=== PATIENT | male | born 1935 | race Caucasian/White ===

== ENCOUNTER → 2016-10-07 | Outpatient (CLI) | payer MEDICARE, BC ==
[2016-10-07 09:56] LABS: CH 29.7; CHCM 32.1; HCT 42.5 % (39.0-53.0); HDW 2.76; HGB 13.7 gm/dL (13.0-17.5); MCH 29.9 pg (25.0-35.0); MCHC 32.2 g/dL (31.0-37.0); Mean Platelet Volume 7.4; RBC 4.56 m/uL (4.30-5.90); RDW 13.3 % (11.5-15.5); WBC 8.4 k/uL (3.8-10.6)
[2016-10-07 10:01] LABS: Appearance,Urine Clear (Clear); Bilirubin,Urine Negative (Negative); Glucose,Urine (UA) Negative (Negative); Ketones,Urine Negative (Negative); Leukocyte Esterase,Urine Negative (Negative); Nitrite,Urine Negative (Negative); PH, Urine 5.5 (5.0-8.0); Protein,Urine Negative (Negative); Specific Gravity,Urine 1.016 (1.001-1.035); UA Billing (MACRO vs. MICRO) CHEM; Urobilinogen,Urine <2.0 mg/dL (<2.0)
[2016-10-07 11:19] LABS: ALT 26 U/L (21-72); AST 24 U/L (17-59); Alkaline Phosphatase 69 U/L (38-126); Anion Gap 11 mmol/L; Blood Urea Nitrogen 18 mg/dL (9-20); Carbon Dioxide 25 mmol/L (22-30); Chloride 105 mmol/L (98-107); Cholesterol 149 mg/dL (<200); Glucose 113 mg/dL (74-99); HDL Cholesterol 31 mg/dL (40-60); Non-African American GFR(MDRD) >60 (>60 ml/min/1.73 sqM); Potassium 4.7 mmol/L (3.5-5.1); Sodium 141 mmol/L (137-145); Total Bilirubin 0.6 mg/dL (0.2-1.3); Total Protein 6.7 g/dL (6.3-8.2); Triglycerides 137 mg/dL (<150)
[2016-10-07 13:01] LABS: Hemoglobin A1C 6.7 % (4.2-6.1)
== END | disposition home or self-care (01) ==
LOC: LABWHC1 09:13
PROVIDERS: ATTEND Internal Medicine
DX: Z00.00 Encounter for general adult medical examination without abnormal findings (principal); E78.5 Hyperlipidemia, unspecified; R73.01 Impaired fasting glucose; J44.9 Chronic obstructive pulmonary disease, unspecified; Z12.5 Encounter for screening for malignant neoplasm of prostate
CPT/HCPCS: 84439; 80061; 80053; 84443; 83036; 85027; 81003; 82043; 36415; G0103

== ENCOUNTER → 2017-10-06 | Outpatient (CLI) | payer MEDICARE, BC ==
[2017-10-06 09:03] LABS: HCT 39.4 % (39.0-53.0); HGB 12.8 gm/dL (13.0-17.5); MCH 29.6 pg (25.0-35.0); MCHC 32.4 g/dL (31.0-37.0); MCV 91.1 fL (80.0-100.0); Mean Platelet Volume 7.4; Platelet Count 294 k/uL (150-450); RBC 4.32 m/uL (4.30-5.90); RDW 13.4 % (11.5-15.5); WBC 7.1 k/uL (3.8-10.6)
[2017-10-06 09:05] LABS: Appearance,Urine Clear (Clear); Bilirubin,Urine Negative (Negative); Blood,Urine Negative (Negative); Color,Urine Yellow; Glucose,Urine (UA) Negative (Negative); Ketones,Urine Negative (Negative); Leukocyte Esterase,Urine Negative (Negative); Nitrite,Urine Negative (Negative); PH, Urine 5.5 (5.0-8.0); Protein,Urine Negative (Negative); Urobilinogen,Urine <2.0 mg/dL (<2.0)
[2017-10-06 09:08] LABS: INR 3.3 (<1.2); Prothrombin Time 29.9 sec (9.0-12.0)
[2017-10-06 12:59] LABS: ALT 26 U/L (21-72); AST 23 U/L (17-59); Albumin 3.6 g/dL (3.5-5.0); Alkaline Phosphatase 73 U/L (38-126); Anion Gap 12 mmol/L; Blood Urea Nitrogen 23 mg/dL (9-20); Calcium 9.3 mg/dL (8.4-10.2); Carbon Dioxide 26 mmol/L (22-30); Chloride 102 mmol/L (98-107); Cholesterol 144 mg/dL (<200); Glucose 108 mg/dL (74-99); HDL Cholesterol 28 mg/dL (40-60); LDL Cholesterol,Calculated 89 mg/dL (0-99); Potassium 4.5 mmol/L (3.5-5.1); Sodium 140 mmol/L (137-145); Total Bilirubin 0.4 mg/dL (0.2-1.3); Total Protein 6.7 g/dL (6.3-8.2); Triglycerides 135 mg/dL (<150)
[2017-10-06 13:23] LABS: PSA Annual Screen 1.14 ng/mL (0.00-4.00)
== END | disposition home or self-care (01) ==
LOC: LABWHC1 08:31
PROVIDERS: ATTEND Internal Medicine
DX: Z00.00 Encounter for general adult medical examination without abnormal findings (principal); E78.5 Hyperlipidemia, unspecified; J44.9 Chronic obstructive pulmonary disease, unspecified; I25.10 Atherosclerotic heart disease of native coronary artery without angina pectoris; Z79.01 Long term (current) use of anticoagulants; Z12.5 Encounter for screening for malignant neoplasm of prostate
CPT/HCPCS: 80061; 80053; 85027; 85610; 81003; 36415; G0103

== ENCOUNTER → 2017-11-05 | Outpatient (CLI) | payer MEDICARE, BC ==
[2017-11-05 20:20] LABS: Hemoglobin A1C 6.4 % (4.0-6.0)
== END | disposition home or self-care (01) ==
LOC: LABWHC1 14:16
PROVIDERS: ATTEND Internal Medicine
DX: E11.9 Type 2 diabetes mellitus without complications (principal)
CPT/HCPCS: 36415; 82947; 83036

== ENCOUNTER → 2017-11-16 | Outpatient (CLI) | payer MEDICARE, BC ==
--- NOTE | 2017-11-16 15:51 | CT ---
EXAMINATION TYPE: CT brain wo con DATE OF EXAM: 11/16/2017 COMPARISON: NONE HISTORY: 82-year-old male unspecified subjective visual disturbances TECHNIQUE: Examination was done in axial plane without intravenous contrast. Coronal and sagittal r econstructions performed. CT DLP: 1076 mGycm Automated exposure control for dose reduction was used. FINDINGS: There is no evidence of acute intracranial hemorrhage, acute ischemic changes, mass, mass-effect, or extra-axial fluid collection. There is no effacement of cerebral sulci or basal subarachnoid cister ns. There is no hydrocephalus. There is no midline shift. Hoang-white matter distinction is preserv ed. Mild generalized supratentorial volume loss. Mild patchy periventricular white matter hypodensities Moderate mucosal thickening visualized maxillary sinuses as well as in the ethmoid air cells. Mastoid air cells well pneumatized. The patient's left lens appears thinner, query prior cataract surgery. IMPRESSION: 1. No acute intracranial abnormality seen. Mild age-related cerebral atrophy. 2. The patient's left lens appears thinner than the right. Query prior cataract surgery. Ophthalmolog ic assessment as indicated.
== END | disposition home or self-care (01) ==
LOC: RADCTMAIN 14:41
PROVIDERS: ATTEND Internal Medicine
DX: G31.9 Degenerative disease of nervous system, unspecified (principal)
CPT/HCPCS: 36415; 70450; 85652

== ENCOUNTER 2022-12-30 09:24 | Observation (INO) | payer MEDICARE, BC ==
[2022-12-30] MEDS ORDERED: NITROGLYCERIN OINT 1 INCH/GM PACKET TOPICAL STA (09:56)
[2022-12-30] MEDS ORDERED: ASPIRIN 81 MG PO STA (09:56)
--- NOTE | 2022-12-30 10:13 | ED ---
General Adult HPI - General Chief complaint: Chest Pain Stated complaint: chest pain Time Seen by Provider: 12/30/22 09:30 Source: patient, RN notes reviewed, old records reviewed Mode of arrival: ambulatory Limitations: no limitations - History of Present Illness Initial comments: This is an 87-year-old male with a past medical history significant for an AK 25 years ago. Patient also has history of atrial fibrillation. Patient comes in today because over the last 5 days been having intermittent chest pain lasting about a minute. Patient states it's a squeezing sensation typical of his angina in the past. Patient states there's been no associated shortness of breath or difficulty breathing. Patient states there is no radiation of the pain he denies any diaphoretic episodes or nausea. Patient denies any abdominal pain. There is been no lightheadedness dizziness or near syncopal episode. Patient denies any swelling to legs or calf tenderness. Patient currently has no chest pain - Related Data Home Medications Medication Instructions Recorded Confirmed Aspirin 81 mg PO HS 01/11/14 12/30/22 Atorvastatin [Lipitor] 20 mg PO SUTUTHSA@209901/11/14 12/30/22 Warfarin [Coumadin] 5 mg PO SUMOTUWETHSA@209901/11/14 12/30/22 ALPRAZolam [Xanax] 0.5 mg PO DAILY PRN 12/30/22 12/30/22 Fluticasone/Umeclidin/Vilanter 1 puff INHALATION RT-DAILY 12/30/22 12/30/22 [Trelegy Ellipta 100-62.5-25] Furosemide [Lasix] 40 mg PO DAILY 12/30/22 12/30/22 Vit C/E/Zn/Coppr/Lutein/Zeaxan 1 cap PO BID 12/30/22 12/30/22 [Preservision Areds 2 Softgel] Warfarin [Coumadin] 2.5 mg PO FR@209912/30/22 12/30/22 Previous Rx's Medication Instructions Recorded Isosorbide Mononitrate ER [Imdur] 15 mg PO DAILY #30 tab 12/31/22 Levothyroxine Sodium [Synthroid] 25 mcg PO DAILY@0630 #30 tab 12/31/22 Pantoprazole [Protonix] 40 mg PO AC-BRKFST #30 tab 12/31/22 atenoloL [Tenormin] 25 mg PO DAILY #0 12/31/22 Allergies Allergy/AdvReac Type Severity Reaction Status Date / Time No Known Allergies Allergy Verified 12/30/22 10:45 Review of Systems ROS Statement: Those systems with pertinent positive or pertinent negative responses have been documented in the HPI. ROS Other: All systems not noted in ROS Statement are negative. Past Medical History Past Medical History: COPD, Diabetes Mellitus, Hyperlipidemia, Myocardial Infarction (AK) History of Any Multi-Drug Resistant Organisms: None Reported Past Surgical History: Heart Catheterization With Stent, Hernia Repair, Tonsillectomy Past Psychological History: No Psychological Hx Reported Smoking Status: Never smoker Past Alcohol Use History: Occasional Past Drug Use History: None Reported General Exam - General Exam Comments Initial Comments: GENERAL: Patient is well-developed and well-nourished. Patient is nontoxic and well- hydrated and is in no acute distress. ENT: Neck is soft and supple. No significant lymphadenopathy is noted. Oropharynx is clear. Moist mucous membranes. Neck has full range of motion without eliciting any pain. EYES: The sclera were anicteric and conjunctiva were pink and moist. Extraocular movements were intact and pupils were equal round and reactive to light. Eyelids were unremarkable. PULMONARY: Unlabored respirations. Good breath sounds bilaterally. No audible rales rhonchi or wheezing was noted. CARDIOVASCULAR: Patient is bradycardic and has an irregularly irregular heartbeat. ABDOMEN: Soft and nontender with normal bowel sounds. SKIN: Skin is clear with no lesions or rashes and otherwise unremarkable. NEUROLOGIC: Patient is alert and oriented x3. Cranial nerves II through XII are grossly intact. Motor and sensory are also intact. Normal speech, volume and content. Symmetrical smile. MUSCULOSKELETAL: Normal extremities with adequate strength and full range of motion. No lower extremity swelling or edema. No calf tenderness. LYMPHATICS: No significant lymphadenopathy is noted PSYCHIATRIC: Normal psychiatric evaluation. Limitations: no limitations Course Vital Signs 12/30/22 12/30/22 09:29 12:57 Temperature 98.3 F 97.6 F Pulse Rate 55 L 53 L Respiratory 18 16 Rate Blood Pressure 130/58 135/77 O2 Sat by Pulse 99 99 Oximetry Medical Decision Making - Medical Decision Making EKG was interpreted by myself shows atrial fibrillation at a rate of 49 bpm QRS is 190 QT interval 490 QTC is 420. Patient's EKG shows no ST segment elevation or depression. Was pt. sent in by a medical professional or institution (, SALLIE, SOUND TRUCK OPERATOR, urgent care, hospital, or [facility]...) When possible be specific @ -Patient was sent in by his lead quality control technician Did you speak to anyone other than the patient for history (EMS, parent, family, police, friend...)? What history was obtained from this source @ -[No] Did you review nursing and triage notes (agree or disagree)? Why? @ -[I reviewed and agree with nursing and triage notes] Were old charts reviewed (outside hosp., previous admission, EMS record, old EKG, old radiological studies, urgent care reports/EKG's, [facility] records)? Report findings @ -Reviewed previous labs and old charts this patient Differential Diagnosis (chest pain, altered mental status, abdominal pain women, abdominal pain men, vaginal bleeding, weakness, fever, dyspnea, syncope, headache, dizziness, GI bleed, back pain, seizure, CVA, palpatations, mental health, musculoskeletal)? @ -Differential Chest Pain: Stable Angina, Unstable Angina, STEMI, NSTEMI Aortic Dissection, Pneumothorax, Musculoskeletal, Esophageal Spasm GERD, Cholecystitis, Pancreatitis, Zoster, this is not meant to be an all-inclusive list. EKG interpreted by me (3pts min.). @ -[As above] X-rays interpreted by me (1pt min.). @ -Chest x-ray shows no acute abnormality CT interpreted by me (1pt min.). @ -[None done] U/S interpreted by me (1pt. min.). @ -[None done] What testing was considered but not performed or refused? (CT, X-rays, U/S, labs)? Why? @ -[None] What meds were considered but not given or refused? Why? @ -[None] Did you discuss the management of the patient with other professionals (professionals i.e. SALLIE Bhandari, SOUND TRUCK OPERATOR, lab, RT, psych nurse, director social service, salt operator, teacher, correctional officer captain, case monitor)? Give summary @ -I spoke with Dr. Gutierrez and [facility] Was smoking cessation discussed for >3mins.? @ -[No] Was critical care preformed (if so, how long)? @ -[No] Were there social determinants of health that impacted care today? How? (Homelessness, low income, unemployed, alcoholism, drug addiction, transportation, low edu. Level, literacy, decrease access to med. care, residential, rehab)? @ -[No] Was there de-escalation of care discussed even if they declined (Discuss DNR or withdrawal of care, Hospice)? DNR status @ -[No] What co-morbidities impacted this encounter? (DM, HTN, Smoking, COPD, CAD, Cancer, CVA, ARF, Chemo, Hep., AIDS, mental health diagnosis, sleep apnea, morbid obesity)? @ -[None] Was patient admitted / discharged? Hospital course, mention meds given and route, prescriptions, significant lab abnormalities, going to OR and other pertinent info. @ -Patient had cardiac lab work done which was negative. Patient had chest x- ray done which is negative. I spoke with both the lead quality control technician and the admitting physician and admitted the patient Undiagnosed new problem with uncertain prognosis? @ -[No] Drug Therapy requiring intensive monitoring for toxicity (Heparin, Nitro, Insulin, Cardizem)? @ -[No] Were any procedures done? @ -[No] Diagnosis/symptom? @ -Chest pain Acute, or Chronic, or Acute on Chronic? @ -Acute Uncomplicated (without systemic symptoms) or Complicated (systemic symptoms)? @ -Complicated Side effects of treatment? @ -[No] Exacerbation, Progression, or Severe Exacerbation? @ -[No] Poses a threat to life or bodily function? How? (Chest pain, USA, AK, pneumonia, PE, COPD, DKA, ARF, appy, cholecystitis, CVA, Diverticulitis, Homicidal, Suicidal, threat to staff... and all critical care pts) @ -This could lead to an AK which could lead to poor perfusion and end organ dysfunction - Lab Data Result diagrams: 12/30/22 10:06 12/30/22 10:06 Lab Results 12/30/22 12/30/22 12/30/22 Range/Units 10:06 10:06 10:06 WBC 8.3 (3.8-10.6) k/uL RBC 4.33 (4.30-5.90) m/uL Hgb 12.9 L (13.0-17.5) gm/dL Hct 39.9 (39.0-53.0) % MCV 92.1 (80.0-100.0) fL MCH 29.7 (25.0-35.0) pg MCHC 32.2 (31.0-37.0) g/dL RDW 13.3 (11.5-15.5) % Plt Count 257 (150-450) k/uL MPV 8.0 Neutrophils % 63 % Lymphocytes % 23 % Monocytes % 7 % Eosinophils % 5 % Basophils % 1 % Neutrophils # 5.2 (1.3-7.7) k/uL Lymphocytes # 1.9 (1.0-4.8) k/uL Monocytes # 0.6 (0-1.0) k/uL Eosinophils # 0.4 (0-0.7) k/uL Basophils # 0.0 (0-0.2) k/uL PT 24.5 H (9.0-12.0) sec INR 2.5 H (<1.2) APTT 35.6 H (22.0-30.0) sec Sodium 138 (137-145) mmol/L Potassium 4.1 (3.5-5.1) mmol/L Chloride 101 (98-107) mmol/L Carbon Dioxide 29 (22-30) mmol/L Anion Gap 8 mmol/L BUN 29 H (9-20) mg/dL Creatinine 0.77 (0.66-1.25) mg/dL Est GFR (CKD-EPI)AfAm >90 (>60 ml/min/1.73 sqM) Est GFR (CKD-EPI)NonAf 82 (>60 ml/min/1.73 sqM) Glucose 137 H (74-99) mg/dL Calcium 9.1 (8.4-10.2) mg/dL Magnesium 2.1 (1.6-2.3) mg/dL Total Bilirubin 0.5 (0.2-1.3) mg/dL AST 24 (17-59) U/L ALT 17 (4-49) U/L Alkaline Phosphatase 93 (38-126) U/L Troponin I (0.000-0.034) ng/mL Total Protein 7.1 (6.3-8.2) g/dL Albumin 3.9 (3.5-5.0) g/dL 12/30/22 Range/Units 10:06 WBC (3.8-10.6) k/uL RBC (4.30-5.90) m/uL Hgb (13.0-17.5) gm/dL Hct (39.0-53.0) % MCV (80.0-100.0) fL MCH (25.0-35.0) pg MCHC (31.0-37.0) g/dL RDW (11.5-15.5) % Plt Count (150-450) k/uL MPV Neutrophils % % Lymphocytes % % Monocytes % % Eosinophils % % Basophils % % Neutrophils # (1.3-7.7) k/uL Lymphocytes # (1.0-4.8) k/uL Monocytes # (0-1.0) k/uL Eosinophils # (0-0.7) k/uL Basophils # (0-0.2) k/uL PT (9.0-12.0) sec INR (<1.2) APTT (22.0-30.0) sec Sodium (137-145) mmol/L Potassium (3.5-5.1) mmol/L Chloride (98-107) mmol/L Carbon Dioxide (22-30) mmol/L Anion Gap mmol/L BUN (9-20) mg/dL Creatinine (0.66-1.25) mg/dL Est GFR (CKD-EPI)AfAm (>60 ml/min/1.73 sqM) Est GFR (CKD-EPI)NonAf (>60 ml/min/1.73 sqM) Glucose (74-99) mg/dL Calcium (8.4-10.2) mg/dL Magnesium (1.6-2.3) mg/dL Total Bilirubin (0.2-1.3) mg/dL AST (17-59) U/L ALT (4-49) U/L Alkaline Phosphatase (38-126) U/L Troponin I <0.012 (0.000-0.034) ng/mL Total Protein (6.3-8.2) g/dL Albumin (3.5-5.0) g/dL Disposition Clinical Impression: Chest pain Disposition: ADMITTED IP TO THIS HOSP
[2022-12-30 10:18] LABS: Basophils % (A) 1 %; Eosinophils # (A) 0.4 k/uL (0-0.7); Eosinophils % (A) 5 %; HCT 39.9 % (39.0-53.0); HGB 12.9 gm/dL (13.0-17.5); Lymphocytes # (A) 1.9 k/uL (1.0-4.8); Lymphocytes % (A) 23 %; MCH 29.7 pg (25.0-35.0); MCHC 32.2 g/dL (31.0-37.0); MCV 92.1 fL (80.0-100.0); Monocytes # (A) 0.6 k/uL (0-1.0); Monocytes % (A) 7 %; Neutrophils # (A) 5.2 k/uL (1.3-7.7); Neutrophils % (A) 63 %; Platelet Count 257 k/uL (150-450); RBC 4.33 m/uL (4.30-5.90); RDW 13.3 % (11.5-15.5); WBC 8.3 k/uL (3.8-10.6)
--- NOTE | 2022-12-30 10:18 | XR ---
EXAMINATION TYPE: XR chest 2V DATE OF EXAM: 12/30/2022 10:13 AM COMPARISON: Chest radiographs from 01/13/2016 TECHNIQUE: XR chest 2V Frontal and lateral views of the chest. CLINICAL INDICATION:Male, 87 years old with history of Chest Pain; FINDINGS: Lungs/Pleura: There is flattening of the diaphragm with increased lucency of the lungs. No evidence o f pneumothorax, pleural effusion or focal consolidation. Right basilar scarring. Pulmonary vascularity: Unremarkable. Heart/mediastinum: Cardiomediastinal silhouette is unremarkable. Musculoskeletal: No acute osseous pathology. IMPRESSION: Chronic changes without evidence for acute process.
[2022-12-30 10:28] LABS: ALT 17 U/L (4-49); AST 24 U/L (17-59); African American GFR (CKD) >90 (>60 ml/min/1.73 sqM); Albumin 3.9 g/dL (3.5-5.0); Alkaline Phosphatase 93 U/L (38-126); Anion Gap 8 mmol/L; Blood Urea Nitrogen 29 mg/dL (9-20); Calcium 9.1 mg/dL (8.4-10.2); Carbon Dioxide 29 mmol/L (22-30); Chloride 101 mmol/L (98-107); Glucose 137 mg/dL (74-99); INR 2.5 (<1.2); Magnesium 2.1 mg/dL (1.6-2.3); Non-African American GFR(CKD) 82 (>60 ml/min/1.73 sqM); Partial Thromboplastin Time 35.6 sec (22.0-30.0); Potassium 4.1 mmol/L (3.5-5.1); Prothrombin Time 24.5 sec (9.0-12.0); Sodium 138 mmol/L (137-145); Total Bilirubin 0.5 mg/dL (0.2-1.3); Total Protein 7.1 g/dL (6.3-8.2)
[2022-12-30] MEDS ORDERED: NITROGLYCERIN SL TABS 0.4 MG TAB SUBLINGUAL PRN (11:01)
[2022-12-30] MEDS: NITROGLYCERIN OINT 1 INCH/GM PACKET TOPICAL SCH ×3 (12:03→21:09)
[2022-12-30] MEDS ORDERED: ALPRAZolam 0.5 MG TAB PO PRN (14:36)
[2022-12-30] MEDS ORDERED: WARFARIN 5 MG TAB PO SCH (21:00)
[2022-12-30] MEDS ORDERED: ASPIRIN 81 MG PO SCH (21:00)
[2022-12-30] MEDS: VIT A,C & E-LUTEIN-MINERALS 1 EACH TAB PO SCH (21:03)
[2022-12-30] MEDS: atenoloL 25 MG TAB PO SCH (21:03)
[2022-12-31] MEDS: NITROGLYCERIN OINT 1 INCH/GM PACKET TOPICAL SCH ×2 (05:53→12:53)
[2022-12-31 06:36] LABS: INR 2.5 (<1.2); Prothrombin Time 24.6 sec (9.0-12.0)
[2022-12-31] MEDS ORDERED: TRELEGY ELLIPTA PO SCH (08:00)
[2022-12-31] MEDS ORDERED: SYMBICORT 80-4.5 MCG INHALER INHALATION SCH (08:00)
[2022-12-31] MEDS ORDERED: IPRATROPIUM 0.5 MG/2.5 ML NEBU INHALATION SCH (08:00)
[2022-12-31 08:19] VITALS: PULSE 57; RESP 18; TEMP 97.8
[2022-12-31] MEDS: VIT A,C & E-LUTEIN-MINERALS 1 EACH TAB PO SCH (08:47)
[2022-12-31] MEDS ORDERED: atenoloL 25 MG TAB PO SCH (09:00)
[2022-12-31] MEDS ORDERED: FUROSEMIDE 40 MG TAB PO SCH (09:00)
[2022-12-31] MEDS ORDERED: ASPIRIN 325 MG TAB PO SCH (09:00)
[2022-12-31 09:08] LABS: Chol/HDL Ratio 3.43 Ratio; LDL Cholesterol,Calculated 59.9 mg/dL (0.0-131.0); VLDL Calculation 13.12 mg/dL (5.00-40.00)
[2022-12-31] MEDS: atenoloL 25 MG TAB PO SCH (09:26)
[2022-12-31] MEDS ORDERED: ISOSORBIDE MONONITRATE ER 15 MG TAB PO SCH (09:30)
[2022-12-31 09:36] VITALS: BP 121/64
[2022-12-31 10:00] LABS: Glucose,Whole Blood 108 mg/dL (70-110)
--- NOTE | 2022-12-31 11:51 | P.HPIM ---
History of Present Illness H&P Date: 12/30/22 HISTORY OF PRESENT ILLNESS This is an 87-year-old male patient with past medical history of persistent atrial fibrillation, coronary artery disease with history of TX 25 years ago with stent in the mid RCA, hypertension, chronic diastolic heart failure, COPD, macular degeneration, diabetes mellitus type 2, hyperlipidemia, vitamin D deficiency, spondylosis of the lumbar spine. Patient reports chest pain that was intermittent for the past 4-5 days. It reminded him of a heart attack he had about 25 years ago but not as severe. It does not seem to be related to activity and actually when he walks fast the pain goes away. Patient presented with the above complaints and was sent into [facility] emergency center for further evaluation. He denies having any shortness of breath, no lightheadedness or dizziness, no cough or sputum production. Regarding hypothyroidism. Patient was instructed to start levothyroxine several months ago and 50 mg but he states he was unable to tolerate it. REVIEW OF SYSTEMS Constitutional: No fever, no chills, no night sweats. No weight change. No weakness, fatigue or lethargy. No daytime sleepiness. EENT: No headache. No blurred vision or double vision, no loss of vision. No loss of Hearing, no ringing in the ears, no dizziness. No nasal drainage or congestion. No epistaxis. No sore throat. Lungs: No shortness of breath, cough, no sputum production. No wheezing. Cardiovascular: Intermittent chest pain, no lower extremity edema. No palpitations. No paroxysmal nocturnal dyspnea. No orthopnea. No lightheadedness or dizziness. No syncopal episodes. Abdominal: No abdominal pain. No nausea, vomiting. No diarrhea. No constipation. No bloody or tarry stools. No loss of appetite. Genitourinary: No dysuria, increased frequency, urgency. No urinary retention. Musculoskeletal: No myalgias. No muscle weakness, no gait dysfunction, no frequent falls. No back pain. No neck pain. Integumentary: No wounds, no lesions. No rash or pruritus. No unusual bruising. No change in hair or nails. Neurologic: No aphasia. No facial droop. No change in mentation. No head injury. No headache. No paralysis. No paresthesia. Psychiatric: No depression. No anxiety. No mood swings. Endocrine: No abnormal blood sugars. No weight change. No excessive sweating or thirst. No cold intolerance. MEDICAL HISTORY Persistent atrial fibrillation Coronary artery disease with history of TX 25 years ago Hypertension Chronic diastolic heart failure COPD Macular degeneration Diabetes mellitus type 2 Hyperlipidemia Vitamin D deficiency Spondylosis of the lumbar spine SURGICAL HISTORY PCI of the RCA in 1996 Tonsillectomy and adenoidectomy Left groin hernia repair Right knee replacement Left eye cataract SOCIAL HISTORY Patient has history of tobacco use and quit greater than 20 years ago. No marijuana use. He drinks alcohol occasionally.. FAMILY HISTORY Mother age 79 from a stroke. Father is and unknown history. Patient has one sister alive with history of breast cancer and diabetes. Patient has 2 daughters with no major medical problems. PHYSICAL EXAMINATION Gen: This is an 87-year-old male. He is resting on the edge of the bed and appears to be in no acute distress. HEENT: Head is atraumatic, normocephalic. Pupils equal, round. Sclerae is anicteric. NECK: Supple. No JVD. No lymphadenopathy. No thyromegaly. LUNGS: Clear to auscultation. No wheezes or rhonchi. No intercostal r etractions. HEART: Irregular rate and rhythm. 2/6 systolic ejection murmur at the left sternal border murmur. ABDOMEN: Soft. Bowel sounds are present. No masses. No tenderness. EXTREMITIES: No pedal edema. No calf tenderness. NEUROLOGICAL: Patient is awake, alert and oriented x3. Cranial nerves 2 through 12 are grossly intact. ASSESSMENT AND PLAN 1. Chest pain. Cardiology consult. Continue patient on aspirin 81 mg daily, atenolol 25 mg twice daily, Lipitor 20 mg Wednesday. 2. History of coronary artery disease with previous stent in the RCA. 3. Persistent atrial fibrillation. Continue Coumadin, pharmacy dosing. 4. Hypertension. 5. Macular degeneration. 6. Hyperlipidemia. 7. Diabetes mellitus type 2 diet controlled. 8. Hypothyroidism. Patient stopped taking his levothyroxine. 9. GI prophylaxis. Protonix. 10. DVT prophylaxis. Coumadin. Patient placed as observation status. DISCHARGE PLAN Home. Impression and plan of care have been directed as dictated by the signing physician. Greta Rodriguez nurse practitioner acting as scribe for signing physician. Past Medical History Past Medical History: COPD, Diabetes Mellitus, Hyperlipidemia, Myocardial Infarction (TX) Last Myocardial Infarction Date:: 1997 History of Any Multi-Drug Resistant Organisms: None Reported Past Surgical History: Heart Catheterization With Stent, Hernia Repair, Tonsillectomy Date of Last Stent Placement:: 1997 Past Psychological History: No Psychological Hx Reported Smoking Status: Never smoker Past Alcohol Use History: Occasional Past Drug Use History: None Reported Medications and Allergies Home Medications Medication Instructions Recorded Confirmed Type Aspirin 81 mg PO HS 01/11/14 12/30/22 History Atorvastatin [Lipitor] 20 mg PO SUTUTHSA@209901/11/14 12/30/22 History Warfarin [Coumadin] 5 mg PO SUMOTUWETHSA@209901/11/14 12/30/22 History ALPRAZolam [Xanax] 0.5 mg PO DAILY PRN 12/30/22 12/30/22 History Fluticasone/Umeclidin/Vilanter 1 puff INHALATION RT-DAILY 12/30/22 12/30/22 History [Trelegy Ellipta 100-62.5-25] Furosemide [Lasix] 40 mg PO DAILY 12/30/22 12/30/22 History Vit C/E/Zn/Coppr/Lutein/Zeaxan 1 cap PO BID 12/30/22 12/30/22 History [Preservision Areds 2 Softgel] Warfarin [Coumadin] 2.5 mg PO FR@209912/30/22 12/30/22 History Isosorbide Mononitrate ER [Imdur] 15 mg PO DAILY #30 tab 12/31/22 Rx Levothyroxine Sodium [Synthroid] 25 mcg PO DAILY@0630 #30 tab 12/31/22 Rx Pantoprazole [Protonix] 40 mg PO AC-BRKFST #30 tab 12/31/22 Rx atenoloL [Tenormin] 25 mg PO DAILY #0 12/31/22 12/30/22 Rx Allergies Allergy/AdvReac Type Severity Reaction Status Date / Time No Known Allergies Allergy Verified 12/30/22 10:45 Physical Exam Vitals: Vital Signs Temp Pulse Pulse Resp BP BP Pulse Ox 12/30/22 14:11 97.6 F 59 L 16 161/81 96 12/30/22 12:57 97.6 F 53 L 16 135/77 99 12/30/22 09:29 98.3 F 55 L 18 130/58 99 Intake and Output 12/30/22 12/30/22 12/30/22 06:59 14:59 22:59 Other: # Voids 0 Weight 90.718 kg Results CBC & Chem 7: 12/30/22 10:06 12/30/22 10:06 Labs: Abnormal Lab Results - Last 24 Hours (Table) 12/30/22 12/30/22 12/30/22 Range/Units 10:06 10:06 10:06 Hgb 12.9 L (13.0-17.5) gm/dL PT 24.5 H (9.0-12.0) sec INR 2.5 H (<1.2) APTT 35.6 H (22.0-30.0) sec BUN 29 H (9-20) mg/dL Glucose 137 H (74-99) mg/dL Thrombosis Risk Factor Assmnt - Choose All That Apply Each Risk Factor Represents 3 Points: Age 75 years or older Thrombosis Risk Factor Assessment Total Risk Factor Score: 3 Thrombosis Risk Factor Assessment Level: Moderate Risk
--- NOTE | 2022-12-31 11:56 | P.DS ---
Providers Date of admission: 12/30/22 11:03 Expected date of discharge: 12/31/22 Attending physician: Marti Gandara Consults: 12/30/22 11:01 Consult Physician Urgent Consulting Provider: [facility] Consult Reason/Comments: Chest pain Do you want consulting provider notified?: Yes Primary care physician: Marti Gandara [facility] Course: HISTORY OF PRESENT ILLNESS This is an 87-year-old male patient with past medical history of persistent atrial fibrillation, coronary artery disease with history of [place] 25 years ago with stent in the mid RCA, hypertension, chronic diastolic heart failure, COPD, macular degeneration, diabetes mellitus type 2, hyperlipidemia, vitamin D deficiency, spondylosis of the lumbar spine. Patient reports chest pain that was intermittent for the past 4-5 days. It reminded him of a heart attack he had about 25 years ago but not as severe. It does not seem to be related to activity and actually when he walks fast the pain goes away. Patient presented with the above complaints and was sent into [facility] emergency center for further evaluation. He denies having any shortness of breath, no lightheadedness or dizziness, no cough or sputum production. Regarding hypothyroidism. Patient was instructed to start levothyroxine several months ago and 50 mg but he states he was unable to tolerate it. 12/31: Patient has been seen by cardiology and med changes were made to include changing atenolol to once daily, added Imdur 15 mg daily, Protonix and levothyroxine. Patient was able to ambulate in the hallway without developing chest pain. Patient denies having any chest pain this morning. No shortness of breath. No lightheadedness or dizziness. Blood pressure 121/64, heart rate is in the 50s. A repeat TSH and free T4 ordered. Echocardiogram has also been ordered. Patient will be discharged home today in stable condition after echocardiogram has been obtained. DISCHARGE DIAGNOSES 1. Chest pain. 2. History of coronary artery disease with previous stent in the RCA. 3. Persistent atrial fibrillation. 4. Hypertension. 5. Macular degeneration. 6. Hyperlipidemia. 7. Diabetes mellitus type 2 diet controlled. 8. Hypothyroidism. DISCHARGE PLAN Home. Greater than 35 minutes was utilized and coordinating patient's discharge. Impression and plan of care have been directed as dictated by the signing physician. Greta Rodriguez nurse practitioner acting as scribe for signing physician. Plan - Discharge Summary Discharge Rx Participant: No New Discharge Prescriptions: New Isosorbide Mononitrate ER [Imdur] 15 mg PO DAILY #30 tab Pantoprazole [Protonix] 40 mg PO AC-BRKFST #30 tab Levothyroxine Sodium [Synthroid] 25 mcg PO DAILY@30 #30 tab Continue Warfarin [Coumadin] 5 mg PO SUMOTUWETHSA@2099 Atorvastatin [Lipitor] 20 mg PO SUTUTHSA@2099 Aspirin 81 mg PO HS Vit C/E/Zn/Coppr/Lutein/Zeaxan [Preservision Areds 2 Softgel] 1 cap PO BID Furosemide [Lasix] 40 mg PO DAILY ALPRAZolam [Xanax] 0.5 mg PO DAILY PRN PRN Reason: Anxiety Warfarin [Coumadin] 2.5 mg PO FR@2099 Fluticasone/Umeclidin/Vilanter [Trelegy Ellipta 100-62.5-25] 1 puff INHALATION RT-DAILY Changed atenoloL [Tenormin] 25 mg PO DAILY #0 Discharge Medication List Aspirin 81 mg PO HS 01/11/14 [History] Atorvastatin [Lipitor] 20 mg PO SUTUTHSA@209901/11/14 [History] Warfarin [Coumadin] 5 mg PO SUMOTUWETHSA@209901/11/14 [History] ALPRAZolam [Xanax] 0.5 mg PO DAILY PRN 12/30/22 [History] Fluticasone/Umeclidin/Vilanter [Trelegy Ellipta 100-62.5-25] 1 puff INHALATION RT-DAILY 12/30/22 [History] Furosemide [Lasix] 40 mg PO DAILY 12/30/22 [History] Vit C/E/Zn/Coppr/Lutein/Zeaxan [Preservision Areds 2 Softgel] 1 cap PO BID 12/30/22 [History] Warfarin [Coumadin] 2.5 mg PO FR@209912/30/22 [History] Isosorbide Mononitrate ER [Imdur] 15 mg PO DAILY #30 tab 12/31/22 [Rx] Levothyroxine Sodium [Synthroid] 25 mcg PO DAILY@30 #30 tab 12/31/22 [Rx] Pantoprazole [Protonix] 40 mg PO AC-BRKFST #30 tab 12/31/22 [Rx] atenoloL [Tenormin] 25 mg PO DAILY #0 12/31/22 [Rx] Follow up Appointment(s)/Referral(s): Brett Gutierrez MD [STAFF PHYSICIAN] - 1 Week Marti Gandara MD [Primary Care Provider] - 1 Week Discharge Disposition: HOME SELF-CARE
--- NOTE | 2022-12-31 12:02 | P.CRDCN ---
History of Present Illness Consult date: 12/31/22 Consult reason: chest pain History of present illness: History of present illness: This is an 87-year-old male patient of Dr. Gutierrez with past medical history of persistent atrial fibrillation on warfarin, coronary artery disease status post mid RCA stent in 1996, hypertension, dyslipidemia, history of tobacco use. We have been asked to evaluate the patient for chest pain. Patient was last seen in the office in July of this year which time no concerns were identified and patient to follow up in a year. Patient states he developed intermittent chest pain that been going on for about 4-5 days. It reminded him of the chest pain when he had his non-ST HI 25 years ago. He states it's not related to activity and actually when he walks fast the pain goes away. He was seen a Dr. Cummings and was sent into the emergency center for further evaluation. He denies having any shortness of breath, no lightheadedness or dizziness, no cough or sputum production. Regarding hypothyroidism. Patient was instructed to start levothyroxine several months ago and 50 mg but he states he was unable to tolerate it. EKG atrial fibrillation ventricular rate of 49 bpm Chest x-ray: Chronic changes without evidence of acute process WBC 8.3, hemoglobin 12.9, platelet count 257. INR 2.5. Electrolytes are normal. BUN 29 creatinine 0.77. Troponin negative 3. Glucose 137, magnesium 2.1. Liver function tests normal. Home cardiac medications: Aspirin 81 mg daily at bedtime, atenolol 25 mg twice daily, atorvastatin 20 mg Wednesday, Lasix 40 mg daily, Coumadin 5 mg daily and 2.5 on Wednesday. Review Of Systems: At the time of my evaluation: Constitutional: No fever, no chills. No weakness, fatigue or lethargy. EENT: No headache. No dizziness. Lungs: No shortness of breath, cough, no sputum production. No wheezing. Cardiovascular: No chest pain, no lower extremity edema. No palpitations. No paroxysmal nocturnal dyspnea. No orthopnea. No lightheadedness or dizziness. No syncopal episodes. Abdominal: No abdominal pain. No nausea, vomiting. No diarrhea. No constipation. No bloody or tarry stools. Genitourinary: No dysuria.. No urinary retention. Musculoskeletal: No myalgias. No muscle weakness, no frequent falls. No back pain. No neck pain. Integumentary: No wounds. No rash. No unusual bruising. Neurologic: No aphasia. No facial droop. No change in mentation. No head injury. No headache. Physical examination: Gen: This is an 87-year-old male resting on the edge of the bed and appears to be comfortable and in no acute distress. VS: reviewed HEENT: Head is atraumatic, normocephalic. Pupils equal, round. Sclerae is anicteric. NECK: Supple. No JVD. . LUNGS: Clear to auscultation. No wheezes or rhonchi. No intercostal retractions. HEART: Regular rate and rhythm. 2/6 systolic murmur, preserved second heart sound ABDOMEN: Soft No tenderness. EXTREMITIES: No pedal edema. No calf tenderness. NEUROLOGICAL: Patient is awake, alert and oriented x3. Assessment: Chest pain, acute coronary syndrome ruled out History of coronary artery disease status post mid RCA stent in 1996 Persistent atrial fibrillation Bradycardia during the night Hypertension Dyslipidemia Macular degeneration Diabetes mellitus type 2 diet-controlled History of tobacco use Hypothyroidism Plan: Continue patient's home cardiac medications Decrease atenolol to 25 mg during the day only Start patient on Imdur 15 mg daily Start patient on levothyroxine 25 g daily Obtain 2-D echocardiogram and Doppler study to assess cardiac structure and function, Patient does not need to wait for results. Patient ambulated in the hallway to the end and back without experiencing chest pain. Patient is cleared from cardiology for discharge home with the above medication changes and will follow up with Dr. Gutierrez in one week with plan for outpatient stress test Thank you kindly for this consultation. Nurse practitioner note has been reviewed, I agree with documented findings and plan of care. Patient was seen and examined. Past Medical History Past Medical History: COPD, Diabetes Mellitus, Hyperlipidemia, Myocardial Infarction (HI) Last Myocardial Infarction Date:: 1997 History of Any Multi-Drug Resistant Organisms: None Reported Past Surgical History: Heart Catheterization With Stent, Hernia Repair, Tonsillectomy Date of Last Stent Placement:: 1997 Past Psychological History: No Psychological Hx Reported Smoking Status: Never smoker Past Alcohol Use History: Occasional Past Drug Use History: None Reported Medications and Allergies Home Medications Medication Instructions Recorded Confirmed Type Aspirin 81 mg PO HS 01/11/14 12/30/22 History Atorvastatin [Lipitor] 20 mg PO SUTUTHSA@209901/11/14 12/30/22 History Warfarin [Coumadin] 5 mg PO SUMOTUWETHSA@209901/11/14 12/30/22 History ALPRAZolam [Xanax] 0.5 mg PO DAILY PRN 12/30/22 12/30/22 History Fluticasone/Umeclidin/Vilanter 1 puff INHALATION RT-DAILY 12/30/22 12/30/22 History [Trelegy Ellipta 100-62.5-25] Furosemide [Lasix] 40 mg PO DAILY 12/30/22 12/30/22 History Vit C/E/Zn/Coppr/Lutein/Zeaxan 1 cap PO BID 12/30/22 12/30/22 History [Preservision Areds 2 Softgel] Warfarin [Coumadin] 2.5 mg PO FR@209912/30/22 12/30/22 History Isosorbide Mononitrate ER [Imdur] 15 mg PO DAILY #30 tab 12/31/22 Rx Levothyroxine Sodium [Synthroid] 25 mcg PO DAILY@0630 #30 tab 12/31/22 Rx Pantoprazole [Protonix] 40 mg PO AC-BRKFST #30 tab 12/31/22 Rx atenoloL [Tenormin] 25 mg PO DAILY #0 12/31/22 12/30/22 Rx Allergies Allergy/AdvReac Type Severity Reaction Status Date / Time No Known Allergies Allergy Verified 12/30/22 10:45 Physical Exam Vitals: Vital Signs Temp Pulse Pulse Resp BP BP Pulse Ox 12/31/22 02:00 59 L 12/31/22 01:34 98.3 F 59 L 16 138/88 97 12/30/22 21:03 18 12/30/22 18:55 97.7 F 57 L 16 145/61 97 12/30/22 14:11 97.6 F 59 L 16 161/81 96 12/30/22 12:57 97.6 F 53 L 16 135/77 99 12/30/22 09:29 98.3 F 55 L 18 130/58 99 Intake and Output 12/30/22 12/31/22 12/31/22 22:59 06:59 14:59 Other: # Voids 1 2 Results 12/30/22 10:06 12/30/22 10:06 Cardiac Enzymes 12/30/22 12/30/22 12/30/22 Range/Units 10:06 10:06 12:47 AST 24 (17-59) U/L Troponin I <0.012 <0.012 (0.000-0.034) ng/mL 12/30/22 Range/Units 15:47 AST (17-59) U/L Troponin I <0.012 (0.000-0.034) ng/mL Coagulation 12/30/22 12/31/22 Range/Units 10:06 05:51 PT 24.5 H 24.6 H (9.0-12.0) sec APTT 35.6 H (22.0-30.0) sec CBC 12/30/22 Range/Units 10:06 WBC 8.3 (3.8-10.6) k/uL RBC 4.33 (4.30-5.90) m/uL Hgb 12.9 L (13.0-17.5) gm/dL Hct 39.9 (39.0-53.0) % Plt Count 257 (150-450) k/uL Comprehensive Metabolic Panel 12/30/22 Range/Units 10:06 Sodium 138 (137-145) mmol/L Potassium 4.1 (3.5-5.1) mmol/L Chloride 101 (98-107) mmol/L Carbon Dioxide 29 (22-30) mmol/L BUN 29 H (9-20) mg/dL Creatinine 0.77 (0.66-1.25) mg/dL Glucose 137 H (74-99) mg/dL Calcium 9.1 (8.4-10.2) mg/dL AST 24 (17-59) U/L ALT 17 (4-49) U/L Alkaline Phosphatase 93 (38-126) U/L Total Protein 7.1 (6.3-8.2) g/dL Albumin 3.9 (3.5-5.0) g/dL Current Medications Generic Name Dose Route Start Last Admin Trade Name Freq PRN Reason Stop Dose Admin Alprazolam 0.5 mg 12/30/22 14:36 Alprazolam 0.5 Mg Tab PO DAILY PRN Anxiety Aspirin 81 mg 12/30/22 21:00 12/30/22 21:03 Aspirin 81 Mg PO Not Given HS [facility] Atenolol 25 mg 12/30/22 21:00 12/30/22 21:03 Atenolol 25 Mg Tab PO 25 mg BID ORAL Administration Atorvastatin Calcium 20 mg 12/31/22 21:00 Atorvastatin 20 Mg Tab PO SUTUTHSA@2100 [facility] Furosemide 40 mg 12/31/22 09:00 Furosemide 40 Mg Tab PO DAILY [facility] Miscellaneous Information 0 each 12/30/22 14:44 Warfarin Per Pharmacy MISCELLANE DIRECTED PRN PER PROTOCOL Multivitamins/Minerals 1 each 12/30/22 21:00 12/30/22 21:03 Vit A,C & P-Rjfpbg-Lseyaumc 1 Each Tab PO 1 each BID ORAL Administration Nitroglycerin 0.4 mg 12/30/22 11:01 Nitroglycerin Sl Tabs 0.4 Mg Tab SUBLINGUAL Q5M PRN Chest Pain Nitroglycerin 1 inch 12/30/22 12:00 12/31/22 05:53 Nitroglycerin Oint 1 Inch/Gm Packet TOPICAL Not Given Q6HR [facility] Trelegy Ellipta 1 each 12/31/22 08:00 12/31/22 07:40 PO 1 each RT-DAILY [facility] Administration Warfarin Sodium 2.5 mg 01/01/23 21:00 Warfarin 2.5 Mg Tab PO FR@2100 [facility] Protocol Warfarin Sodium 5 mg 12/30/22 21:00 12/30/22 18:10 Warfarin 5 Mg Tab PO Not Given SUMOTUWETHSA@2100 [facility] Protocol Intake and Output 12/30/22 12/31/22 12/31/22 22:59 06:59 14:59 Other: # Voids 1 2 12/30/22 10:06 12/30/22 10:06
[2022-12-31] MEDS ORDERED: ATORVASTATIN 20 MG TAB PO SCH (21:00)
[2023-01-01] MEDS ORDERED: LEVOTHYROXINE 25 MCG TAB PO SCH (06:30)
[2023-01-01] MEDS ORDERED: PANTOPRAZOLE 40 MG TABLET PO SCH (07:30)
--- NOTE | 2023-01-01 12:09 | CA ---
Transthoracic Echo Report Name: Alirio Lyle Age: 87 Gender: M : 1935 Exam Date: 12/31/2022 13:02 Exam Location: [facility] Ht (in): 74 Wt (lb): 200 Ordering Physician: Greta Rodriguez Attending/Referring Phys: [id number], [facility] Registered Nurse Leticia Marc [facility] Procedure CPT: Indications: LVF Cardiac Hx: Technical Quality: Fair Contrast 1: Total Dose (mL): Contrast 2: Total Dose (mL): MEASUREMENTS (Male / Female) Normal Values 2D ECHO LV Diastolic Diameter PLAX 4.6 cm 4.2 - 5.9 / 3.9 - 5.3 cm LV Systolic Diameter PLAX 2.9 cm IVS Diastolic Thickness 0.8 cm 0.6 - 1.0 / 0.6 - 0.9 cm LVPW Diastolic Thickness 0.8 cm 0.6 - 1.0 / 0.6 - 0.9 cm LV Relative Wall Thickness 0.3 LVOT Diameter 2.0 cm Ascending Aorta Diameter 3.5 cm M-MODE Aortic Root Diameter MM 2.9 cm LA Systolic Diameter MM 5.5 cm LA Ao Ratio MM 1.9 AV Cusp Separation MM 1.4 cm DOPPLER AV Peak Velocity 266.2 cm/s AV Peak Gradient 28.3 mmHg AV Mean Velocity 215.5 cm/s AV Mean Gradient 19.2 mmHg AV Velocity Time Integral 71.6 cm AI Peak Velocity 377.8 cm/s AI Peak Gradient 57.1 mmHg AI Pressure Half Time 598.5 ms LVOT Peak Velocity 78.6 cm/s LVOT Peak Gradient 2.5 mmHg LVOT Velocity Time Integral 21.4 cm LVOT Stroke Volume 67.7 cm??? LVOT Stroke Volume Index 31.1 ml/m??? LVOT Cardiac Index 1704.0 cm???/min???m??? AV Area Cont Eq vti 0.9 cm??? AV Area Cont Eq pk 0.9 cm??? Mitral E Point Velocity 97.3 cm/s Mitral A Point Velocity 35.5 cm/s Mitral E to A Ratio 2.7 MV Deceleration Time 245.3 ms LV E' Lateral Velocity 12.9 cm/s Mitral E to LV E' Lateral Ratio 7.5 LV E' Septal Velocity 9.1 cm/s Mitral E to LV E' Septal Ratio 10.7 TR Peak Velocity 295.5 cm/s TR Peak Gradient 34.9 mmHg Right Atrial Pressure 15.0 mmHg Pulmonary Artery Systolic Pressu 49.9 mmHg Right Ventricular Systolic Press 49.9 mmHg FINDINGS Left Ventricle Normal Left ventricular size, wall thickness, systolic function with no obvious regional wall motion abnormalities. Left ventricular ejection fraction is estimated at 55-60%. Right Ventricle Moderate right ventricular dilatation. Moderately reduced right ventricular global systolic function. Moderate pulmonary hypertension. Right Atrium Severe right atrial dilatation. Left Atrium Severe left atrial dilatation. Mitral Valve Structurally normal mitral valve. Mild mitral annular calcification. Moderate mitral regurgitation. Aortic Valve Trileaflet aortic valve. Diffuse thickening of the aortic valve cusps with reduced excursion. Aortic stenosis with a peak gradient of 28 mmHg and a mean gradient of 19 mmHg. Tricuspid Valve Structurally normal tricuspid valve. Mild tricuspid regurgitation. Pulmonic Valve Structurally normal pulmonic valve. [id number] pulmonic regurgitation. Pericardium No pericardial effusion. Aorta Normal size aortic root and proximal ascending aorta. CONCLUSIONS Normal LV size and systolic function with mild concentric LVH. Significant enlargement of both atria are noted. Right ventricle is mild to moderately dilated. There is mild aortic stenosis moderate mitral regurgitation and moderate pulmonary hypertension no pericardial effusion Previewed by: Dr. Nimo Velasquez MD (Electronically Signed) Final Date: 01 January 2023 12:08
[2023-01-01] MEDS ORDERED: WARFARIN 2.5 MG TAB PO SCH (21:00)
== END 2022-12-31 13:50 | disposition home or self-care (01) ==
LOC: EC 09:24 → 6NMEDSUR 11:03
PROVIDERS: ADMIT Internal Medicine; ATTEND Internal Medicine
DX: R07.89 Other chest pain (principal); I25.2 Old myocardial infarction; I11.0 Hypertensive heart disease with heart failure; I50.32 Chronic diastolic (congestive) heart failure; E55.9 Vitamin D deficiency, unspecified; M47.816 Spondylosis without myelopathy or radiculopathy, lumbar region; J44.9 Chronic obstructive pulmonary disease, unspecified; E03.9 Hypothyroidism, unspecified; E11.9 Type 2 diabetes mellitus without complications; H35.30 Unspecified macular degeneration; I25.10 Atherosclerotic heart disease of native coronary artery without angina pectoris; I48.19 Other persistent atrial fibrillation; E78.5 Hyperlipidemia, unspecified; I27.20 Pulmonary hypertension, unspecified; I08.1 Rheumatic disorders of both mitral and tricuspid valves; I37.1 Nonrheumatic pulmonary valve insufficiency; Z79.82 Long term (current) use of aspirin; Z79.01 Long term (current) use of anticoagulants; Z79.899 Other long term (current) drug therapy; Z79.890 Hormone replacement therapy; Z95.5 Presence of coronary angioplasty implant and graft; Z96.651 Presence of right artificial knee joint; Z98.42 Cataract extraction status, left eye; Z63.4 Disappearance and death of family member; Z82.3 Family history of stroke; Z83.3 Family history of diabetes mellitus; Z80.3 Family history of malignant neoplasm of breast
CPT/HCPCS: 99285; 36415; 94640; 93005; 93306; 80061; 80053; 84443; 83735; 84484; 85025; 85610 ×2; 85730; 71046; G0378 ×2